=== PATIENT | female | born 1960 | race Caucasian/White ===

== ENCOUNTER → 2016-12-23 | Outpatient (CLI) | payer MEDICARE ==
[~2016-12-23] MED LIST: ASPI-110 PO; ATOR20TA15 PO; BUTA1CAP PO; CLOP75TA PO; ESOM1CAP16 PO; LACTCAP8 PO; LOPE2CAP PO; METO-424 PO; NEUR100C PO; ONDA1TAB17 PO; OXYC-395 PO; PROM25TA10 PO; SOMA350T PO; WALKER WHEELS/F1 MIS
[2016-12-23 12:25] LABS: MEAN CORPUSCULAR HEMOGLOBIN 32.5 PG (27.0-34.0); MEAN CORPUSCULAR HGB CONC 33.5 % (32.0-36.0); PLATELET COUNT 165 TH/MM3 (150-450); RED BLOOD COUNT 4.02 MIL/MM3 (4.00-5.30); RED CELL DISTRIBUTION WIDTH 14.1 % (11.6-17.2); REVIEW FLAG FINAL; WHITE BLOOD COUNT 5.8 TH/MM3 (4.0-11.0)
[2016-12-23 12:35] LABS: INTERNATIONAL NORMALIZED RATIO 0.9 RATIO; PROTHROMBIN TIME - PATIENT 10.4 SEC (9.8-11.6)
[2016-12-23 12:45] LABS: BLOOD, URINE NEG (NEG); COMMENT (UR) CULT NOT INDICATED; CULTURE IF INDICATED CULT NOT INDICATED; GLUCOSE,URINE NEG (NEG); KETONE, URINE NEG (NEG); MUCUS URINE FEW /lpf (OCC); NITRITE,URINE NEG (NEG); PH, URINE 6.5 (5.0-8.5); SQUAMOUS EPITHELIAL CELL URINE <1 /hpf (0-5); URINE COLOR YELLOW (YELLW/STRAW)
[2016-12-23 12:55] LABS: BICARBONATE 28.1 MEQ/L (21.0-32.0); POTASSIUM 4.2 MEQ/L (3.5-5.1)
--- NOTE | 2016-12-23 18:38 | EKG ---
Date Performed: 12/23/2016 Time Performed: 11:31:22 PTAGE: 56 years EKG: SINUS BRADYCARDIA BORDERLINE ECG NO PREVIOUS TRACING DOCTOR: Kashif Silver Interpretating Date/Time 12/23/2016 18:37:51
== END ==
LOC: CPRE 10:36
PROVIDERS: ATTEND Surgery
DX: Z01.812 Encounter for preprocedural laboratory examination (principal); Z01.810 Encounter for preprocedural cardiovascular examination; I73.9 Peripheral vascular disease, unspecified; I77.1 Stricture of artery; R94.31 Abnormal electrocardiogram [ECG] [EKG]
CPT/HCPCS: 36415; 80048; 81001; 85027; 85610; 93005

== ENCOUNTER 2016-12-26 10:12 | Inpatient (IN) | payer MEDICARE ==
[~2016-12-26] VITALS: Ht 156.2 cm; Wt 52.5 kg
[~2016-12-26 10:12] MED LIST changes: -WALKER WHEELS/F1 MIS
[2016-12-26] MEDS ORDERED: LACTATED RINGER'S 1000 ML IV PRN (11:45)
[2016-12-26] MEDS ORDERED: METOPROLOL TARTRATE 25 MG TAB PO PRN (11:45)
[2016-12-26] MEDS ORDERED: POVIDONE IODINE 5% (ANTISEPSIS KIT) 4 APPLICATIONS EACH NARE PRN (11:45)
[2016-12-26] MEDS ORDERED: INSULIN HUMAN REGULAR 1,000 UNITS/10 ML VIAL SQ PRN (11:45)
[2016-12-26] MEDS ORDERED: SODIUM CHLORID 0.9% 500 ML IV PRN (11:45)
[2016-12-26] MEDS ORDERED: CHLORHEXIDINE GLUCONATE 2 % 1 PACK (2 CLOTHS) TOPICAL PRN (11:45)
[2016-12-26] MEDS ORDERED: ROCURONIUM INJ 50 MG/5 ML SYRINGE IV PUSH ONE (12:00)
[2016-12-26] MEDS ORDERED: SODIUM CHLORID 0.9% 500 ML INJ 500 ML IV ONE (12:00)
[2016-12-26] MEDS ORDERED: SODIUM CHLOR 0.9% 250 ML INJ 250 ML IV ONE (12:00)
[2016-12-26] MEDS ORDERED: diphenhydrAMINE HCL 50 MG CAP PO ONE (12:00)
[2016-12-26] MEDS ORDERED: NEOSTIGMINE 3 MG/3 ML SYR IV ONE (12:00)
[2016-12-26] MEDS ORDERED: IOHEXOL 300 MG/ML 50 ML BTL (for RAD DIAG) OTHER ONE (12:00)
[2016-12-26] MEDS ORDERED: predniSONE 50 MG TAB PO ONE (12:00)
[2016-12-26] MEDS ORDERED: PHENYLEPH/NS 1000 MCG/10 ML SYR IV ONE (12:00)
[2016-12-26] MEDS ORDERED: PROPOFOL 200 MG/20 ML AMP IV ONE (12:00)
[2016-12-26] MEDS ORDERED: ONDANSETRON HCL 4 MG/2 ML VIAL IV PUSH ONE (12:00)
[2016-12-26] MEDS ORDERED: GLYCOPYRROLATE 1 MG/5 ML SYRINGE IV PUSH ONE (12:00)
--- NOTE | 2016-12-26 12:14 | HHI.HP ---
History of Present Illness Chief Complaint: LEFT LEG rest pain, PAD History of Present Illness 56 yo female with PAD s/p multiple LE interventions, including ABF, L LE end interventions. Recently known to have failed and presents for L LE revascularization, open or endovascular. No tissue loss. Past/Family/Social History Past Medical History PAD mesenteric occlusive disease CAD Past Surgical History ABF B LE revascularization mesenteric bypass L UE embolectomy Social History former smoker Family History NC Home Medications Reported Medications Promethazine (Phenergan) 25 Mg Tablet, 25 MG PO Q6H Y for NAUSEA OR VOMITING, TAB 0 Refills 12/23/16 Oxycodone (Oxycodone) 10 Mg Tab, 10 MG PO Q6H Y for PAIN, TAB 0 Refills 12/23/16 Ondansetron (Ondansetron) 8 Mg Tab, 8 MG PO TID for Nausea/Vomiting, TAB 0 Refills 12/23/16 Metoprolol Tartrate (Metoprolol Tartrate) 37.5 Mg Tab, 37.5 MG PO BID, #60 TAB 0 Refills 12/23/16 Loperamide (Loperamide) 2 Mg Cap, 2 MG PO DIRECTED Y for DIARRHEA, CAP 0 Refills One capsule after each loose stool. Not to exceed 8 capsules per day. 12/23/16 Lactobacillus Acidophilus (Probiotic) 10 Billion Cell Cap, 1 CAP PO DAILY for Nutritional Supplement, #90 CAP 0 Refills 12/23/16 Gabapentin (Neurontin) 100 Mg Cap, 100 MG PO TID, #90 CAP 0 Refills 12/23/[address] (Esomeprazole DR) 40 Mg Capdr, 40 MG PO DAILY, #30 CAP 0 Refills 12/23/16 Clopidogrel (Clopidogrel) 75 Mg Tab, 75 MG PO DAILY for Blood Clot Prevention, # 30 TAB 0 Refills 12/23/16 Carisoprodol (Soma) 350 Mg Tab, 350 MG PO QID Y for PAIN, TAB 0 Refills 12/23/16 Yzttpoyyal-Ivtjwdmvweswg-Awxdvoqx (Fioricet) 50-300-40 Mg Cap, 1 CAP PO Q4H Y for HEADACHE, CAP 0 Refills 12/23/16 Atorvastatin (Atorvastatin) 20 Mg Tab, 20 MG PO HS for Cholesterol Management, # 30 TAB 0 Refills 12/23/[address] (Aspirin 81) 81 Mg Tabdr, 81 MG PO DAILY, TAB 0 Refills 12/23/16 Coded Allergies: Penicillins (Verified Allergy, Severe, Anaphylaxis, 12/23/16) Sulfa (Sulfonamide Antibiotics) (Verified Allergy, Severe, Anaphylaxis, ) bee venom protein (honey bee) (Verified Allergy, Severe, Anaphylaxis, 12/23) cephalexin (Verified Allergy, Severe, Anaphylaxis, 12/23/16) ciprofloxacin (Verified Allergy, Severe, Anaphylaxis, 12/23/16) iodine (Verified Allergy, Severe, Anaphylaxis, 12/23/16) latex (Verified Allergy, Severe, Anaphylaxis, 12/23/16) levofloxacin (Verified Allergy, Severe, SWELLING, 12/23/16) tetracycline (Verified Allergy, Severe, Anaphylaxis, 12/23/16) heparin (Verified Allergy, Unknown, 12/23/16) morphine (Verified Allergy, Unknown, 12/23/16) Uncoded Allergies: PEPPERS (Allergy, Severe, Anaphylaxis, 12/23/16) Review of Systems Constitutional: DENIES: Diaphoretic episodes, Fatigue, Fever, Weight gain, Weight loss, Chills, Dizziness, Change in appetite, Night Sweats Cardiovascular: DENIES: Chest pain, Palpitations, Syncope, Dyspnea on Exertion , PND, Lower Extremity Edema, Orthopnea, Claudication Physical Exam Neuro: alert, awake, PEREZ HEENT: NC/AT Neck: no JVD Heart: reg rate Lungs: clear B Abdomen: incisions healed Vascular: palpable L femoral pulse, no distal pulses Extremities: no wounds Caprini VTE Risk Assessment Caprini VTE Risk Assessment: Mod/High Risk (score >= 2) Caprini Risk Assessment Model Point Value = 1 Point Value = 2 Point Value = 3 Point Value = 5 Age 41-60 Minor surgery BMI > 25 kg/m2 Swollen legs Varicose veins or History of unexplained or recurrent spontaneous Oral contraceptives or hormone replacement Sepsis (< 1 month) Serious lung disease, including pneumonia (< 1 month) Abnormal pulmonary function Acute myocardial infarction Congestive heart failure (< 1 month) History of inflammatory bowel disease Medical patient at bed rest Age 61-74 Arthroscopic surgery Major open surgery (> 45 min) Laparoscopic surgery (> 45 min) Malignancy Confined to bed (> 72 hours) Immobilizing plaster cast Central venous access Age >= 75 History of VTE Family history of VTE Factor V Leiden Prothrombin [id number] Lupus anticoagulant Anticardiolipin antibodies Elevated serum homocysteine Heparin-induced thrombocytopenia Other congenital or acquired thrombophilia Stroke (< 1 month) Elective arthroplasty Hip, pelvis, or leg fracture Acute spinal cord injury (< 1 month) Prophylaxis Regimen Total Risk Factor Score Risk Level Prophylaxis Regimen 0-1 Low Early ambulation 2 Moderate Order ONE of the following: *Sequential Compression Device (SCD) *Heparin 5000 units SQ BID 3-4 Higher Order ONE of the following medications: *Heparin 5000 units SQ TID *Enoxaparin/Lovenox 40 mg SQ daily (WT < 150 kg, CrCl > 30 mL/min) *Enoxaparin/Lovenox 30 mg SQ daily (WT < 150 kg, CrCl > 10-29 mL/min) *Enoxaparin/Lovenox 30 mg SQ BID (WT < 150 kg, CrCl > 30 mL/min) AND/OR *Sequential Compression Device (SCD) 5 or more Highest Order ONE of the following medications: *Heparin 5000 units SQ TID (Preferred with Epidurals) *Enoxaparin/Lovenox 40 mg SQ daily (WT < 150 kg, CrCl > 30 mL/min) *Enoxaparin/Lovenox 30 mg SQ daily (WT < 150 kg, CrCl > 10-29 mL/min) *Enoxaparin/Lovenox 30 mg SQ BID (WT < 150 kg, CrCl > 30 mL/min) AND *Sequential Compression Device (SCD) Assessment and Plan Plan L LE angiogram and potential intervention or distal bypass Pt and understand the plan Gil Perez MD Dec 26, 2016 12:09
[2016-12-26] MEDS ORDERED: HEPARIN SODIUM - IV 10,000 UNITS/10 ML VIAL ONE (12:55)
[2016-12-26] MEDS ORDERED: BUPIVACAINE HCL PF 0.5% 30 ML VIAL ONE (12:55)
[2016-12-26] MEDS ORDERED: HEPARIN-NS/PF INJ 1,000 ML ONE (12:55)
[2016-12-26] MEDS ORDERED: THROMBIN (TOPICAL) 20,000 UNIT SPRAY KIT ONE (12:56)
[2016-12-26] MEDS ORDERED: PROTAMINE SULFATE 50 MG/5 ML VIAL ONE (12:56)
[2016-12-26] MEDS ORDERED: MIDAZOLAM HCL 2 MG/2 ML VIAL ONE (13:04)
[2016-12-26] MEDS ORDERED: FAMOTIDINE 20 MG/2 ML VIAL ONE (13:05)
[2016-12-26] MEDS ORDERED: methylPREDNISolone SOD SUCC 125 MG/2 ML VIAL ONE (13:05)
[2016-12-26] MEDS ORDERED: diphenhydrAMINE HCL 50 MG/ML VIAL ONE (13:05)
[2016-12-26] MEDS ORDERED: VANCOMYCIN HCL 1000 MG VIAL ONE (13:29)
--- NOTE | 2016-12-26 16:07 | HHI.PR ---
Immediate Post Op Note Procedure Date: Dec 26, 2016 Pre Op Diagnosis: LLE rest pain, PAD Post Op Diagnosis: LLE rest pain, PAD Surgeon: Gil Perez Mds Rn(s): Allegra Fofana Procedure: 1. U/S guided access to fem-fem 2. L LE angiogram 3. L fem-BK pop (cryo) Findings: occluded SFA and popliteal artery Additional Information: Strong Doppler signals DP/PT after bypass Complications: none Specimen(s) removed: none Estimated blood loss: 100mL Anesthesia: General Drains: None Fluids: 1200mL x'oid; 700 mL UOP Patient to: Other ([facility]) Patient Condition: Good Implant/Devices: SEE IMPLANT LOG (if applicable) Date/Time of Procedure: SEE SURGICAL CARE RECORD Gil Perez MD Dec 26, 2016 16:07
[2016-12-26] MEDS: LACTATED RINGER'S 1000 ML INJ 1,000 ML IV SCH (16:08)
[2016-12-26] MEDS ORDERED: NALOXONE HCL 0.4 MG/ML AMP IV PUSH PRN (16:15)
[2016-12-26] MEDS ORDERED: ACETAMIN 325 MG/BUTALBITAL 50 MG/CAFFEINE 40 MG TAB PO PRN (16:15)
[2016-12-26] MEDS ORDERED: LOPERAMIDE HCL 2 MG CAP PO PRN (16:15)
[2016-12-26] MEDS ORDERED: PROMETHAZINE HCL 25 MG TAB PO PRN (16:15)
[2016-12-26] MEDS: HYDROmorphone HCL PCA 6 MG/30 ML IV SCH ×3 (17:01→23:40)
[2016-12-26 17:26] VITALS: PULSE 72
[2016-12-26 18:07] VITALS: PULSE 83
[2016-12-26 19:00] VITALS: BP 167/98; PULSE 102; PULSE 109; RESP 18; TEMP 98.1; O2SAT 96; O2SAT 99
[2016-12-26] MEDS: ONDANSETRON ODT 4 MG TAB PO SCH (20:15)
[2016-12-26] MEDS ORDERED: METOPROLOL TARTRATE 5 MG/5 ML VIAL IV PUSH PRN ×2 (20:45)
[2016-12-26] MEDS: DOCUSATE SODIUM 100 MG CAP PO SCH (21:00)
--- NOTE | 2016-12-26 21:07 | PD.CONS ---
HPI Service Critical Care Medicine Consult Requested By Primary Care Physician Non-Staff History of Present Illness 56-year-old very pleasant female with peripheral arterial disease status post multiple lower extremities interventions, including ABF, left lower extremity stent interventions. Recently known to have failed and presents for left lower extremity revascularization by Dr. Perez. She underwent left lower extremity angiogram with finding of occluded SFA and popliteal artery and was treated with the bypass. Review of Systems Constitutional: DENIES: Diaphoretic episodes, Fatigue, Fever, Weight gain, Weight loss, Chills, Dizziness, Change in appetite, Night Sweats Endocrine: DENIES: Abnorml menstrual pattern, Heat/cold intolerance, Polydipsia , Polyuria, Polyphagia Eyes: DENIES: Blurred vision, Diplopia, Eye inflammation, Eye pain, Vision loss , Photosensitivity, Double Vision Ears, nose, mouth, throat: DENIES: Tinnitus, Hearing loss, Vertigo, Nasal discharge, Oral lesions, Throat pain, Hoarseness, Ear Pain, Running Nose, Epistaxis, Sinus Pain, Toothache, Odynophagia Respiratory: DENIES: Apneas, Cough, Snoring, Wheezing, Hemoptysis, Sputum production, Shortness of breath Cardiovascular: DENIES: Chest pain, Palpitations, Syncope, Dyspnea on Exertion , PND, Lower Extremity Edema, Orthopnea, Claudication Gastrointestinal: DENIES: Abdominal pain, Black stools, Bloody stools, Constipation, Diarrhea, Nausea, Vomiting, Difficulty Swallowing, Anorexia Genitourinary: DENIES: Abnormal vaginal bleeding, Dysmenorrhea, Dyspareunia, Sexual dysfunction, Urinary frequency, Urinary incontinence, Urgency, Hematuria , Dysuria, Nocturia, Vaginal discharge Musculoskeletal: COMPLAINS OF: Muscle aches, DENIES: Joint pain, Stiffness, Joint Swelling, Back pain, Neck pain Integumentary: DENIES: Abnormal pigmentation, Pruritus, Rash, Nail changes, Breast masses, Breast skin changes, Nipple discharge Hematologic/lymphatic: DENIES: Bruising, Lymphadenopathy Immunologic/allergic: DENIES: Eczema, Urticaria Neurologic: COMPLAINS OF: Abnormal gait, Localized weakness, DENIES: Headache, Paresthesias, Seizures, Speech Problems, Tremor, Poor Balance Psychiatric: DENIES: Anxiety, Confusion, Mood changes, Depression, Hallucinations, Agitation, Suicidal Ideation, Homicidal Ideation, Delusions Past Family Social History Allergies: Coded Allergies: Penicillins (Verified Allergy, Severe, Anaphylaxis, 12/23/16) Sulfa (Sulfonamide Antibiotics) (Verified Allergy, Severe, Anaphylaxis, ) bee venom protein (honey bee) (Verified Allergy, Severe, Anaphylaxis, 12/23) cephalexin (Verified Allergy, Severe, Anaphylaxis, 12/23/16) ciprofloxacin (Verified Allergy, Severe, Anaphylaxis, 12/23/16) iodine (Verified Allergy, Severe, Anaphylaxis, 12/23/16) latex (Verified Allergy, Severe, Anaphylaxis, 12/23/16) levofloxacin (Verified Allergy, Severe, SWELLING, 12/23/16) tetracycline (Verified Allergy, Severe, Anaphylaxis, 12/23/16) morphine (Verified Allergy, Unknown, 12/23/16) Uncoded Allergies: PEPPERS (Allergy, Severe, Anaphylaxis, 12/23/16) Past Medical History Peripheral artery disease Mesenteric occlusive disease Coronary artery disease Past Surgical History ABF B LE revascularization mesenteric bypass L UE embolectomy Reported Medications Reported Meds & Active Scripts Active Reported Phenergan (Promethazine HCl) 25 Mg Tablet 25 Mg PO Q6H PRN Oxycodone (Oxycodone HCl) 10 Mg Tab 10 Mg PO Q6H PRN Ondansetron (Ondansetron HCl) 8 Mg Tab 8 Mg PO TID Metoprolol Tartrate 37.5 Mg Tab 37.5 Mg PO BID Loperamide (Loperamide HCl) 2 Mg Cap 2 Mg PO DIRECTED PRN One capsule after each loose stool. Not to exceed 8 capsules per day. 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 LEAD PRESSMAN [employer] GRAV[employer] PRINTING PRN SQ SEE PROTOCOL TABLE 12/26/16 11:45 12/29/16 11:44 Lactated Ringer's 1,000 ml @ 42 mls/hr [id number] IV 12/26/16 16:08 12/26/16 16:08 Famotidine (Pepcid) 20 mg BID PO 12/26/16 21:00 12/26/16 21:35 Docusate Sodium (Colace) 100 mg BID PO 12/26/16 21:00 Enoxaparin Sodium (Lovenox Inj) 30 mg Q24H SQ 12/27/16 16:00 Aspirin (Ecotrin Ec) 81 mg DAILY PO 12/27/16 09:00 Atorvastatin Calcium (Lipitor) 20 mg HS PO 12/26/16 21:00 12/26/16 21:34 Carisoprodol (Soma) 350 mg QID PRN PO PAIN 12/26/16 16:15 Clopidogrel Bisulfate (Plavix) 75 mg DAILY PO 12/27/16 09:00 Loperamide HCl (Imodium) 2 mg Q12H PRN PO DIARRHEA 12/26/16 16:15 Promethazine HCl (Phenergan) 25 mg Q6H PRN PO NAUSEA OR VOMITING 12/26/16 16:15 Acetaminophen/ Butalbital/ Caffeine (Fioricet 325-50-40) 1 tab Q4H PRN PO HEADACHE 12/26/16 16:15 Pantoprazole Sodium (Protonix) 40 mg DAILY PO 12/27/16 09:00 Metoprolol Tartrate (Lopressor) 37.5 mg BID PO 12/26/16 21:00 12/26/16 21:35 Ondansetron HCl (Zofran Odt) 8 mg TID PO 12/26/16 18:00 12/26/16 20:15 Metoprolol Tartrate (Lopressor Inj) 10 mg Q2H PRN IV PUSH FOR SBP>160 12/26/16 20:45 Metoprolol Tartrate (Lopressor Inj) 10 mg Q2H PRN IV PUSH IF FIRST DOSE INEFFECTIVE 12/26/16 20:45 WIRE STRAIGHTENER Dosage Infused (Pha) 1 Q8HR .XX 12/27/16 06:00 Naloxone HCl (Narcan Inj) 0.4 mg UNSCH PRN IV PUSH RESPIRATORY RATE LESS THAN 10 12/27/16 00:00 Diphenhydramine HCl (Benadryl) 25 mg Q6H PRN PO ITCHING 12/27/16 00:00 Diphenhydramine HCl (Benadryl Inj) 25 mg Q6H PRN IV PUSH ITCHING 12/27/16 00:00 Hydromorphone HCl (Dilaudid WIRE STRAIGHTENER Inj) 6 mg UNSCH IV 12/26/16 23:45 12/26/16 23:40 Family History No family history significant for malignancy Social History Former smoker No history of alcohol abuse, no history of illicit drug abuse Physical Exam Vital Signs Vital Signs Date Time Temp Pulse Resp B/P (MAP) Pulse Ox O2 Delivery O2 Flow Rate FiO2 12/26/16 20:46 18 12/26/16 20:15 18 12/26/16 19:00 102 12/26/16 18:07 83 12/26/16 17:26 72 12/26/16 17:01 18 12/26/16 12:22 97.6 56 20 130/64 (86) 99 Physical Exam GENERAL: Well-nourished, well-developed patient. In no acute distress SKIN: Warm and dry. HEAD: Normocephalic. EYES: No scleral icterus. No injection or drainage. NECK: Supple, trachea midline. No JVD or lymphadenopathy. CARDIOVASCULAR: Regular rate and rhythm without murmurs, gallops, or rubs. RESPIRATORY: Breath sounds equal bilaterally. No accessory muscle use. GASTROINTESTINAL: Abdomen soft, non-tender, nondistended. MUSCULOSKELETAL: No cyanosis, or edema. BACK: Nontender without obvious deformity. NEURO EXAM: GCS: M6 V5 E4 Mental Status: The patient is alert and oriented to person, place, and time with normal speech. Cranial Nerves: Visual acuity intact bilaterally. Visual morocho normal in all quadrants. Pupils are round, reactive to light. Extraocular movements are intact without ptosis. Hearing is normal bilaterally. Voice is normal. Tongue protrudes midline and moves symmetrically. Laboratory Reported Meds & Active Scripts Active Reported Phenergan (Promethazine HCl) 25 Mg Tablet 25 Mg PO Q6H PRN Oxycodone (Oxycodone HCl) 10 Mg Tab 10 Mg PO Q6H PRN Ondansetron (Ondansetron HCl) 8 Mg Tab 8 Mg PO TID Metoprolol Tartrate 37.5 Mg Tab 37.5 Mg PO BID Loperamide (Loperamide HCl) 2 Mg Cap 2 Mg PO DIRECTED PRN One capsule after each loose stool. Not to exceed 8 capsules per day. Esomeprazole DR 40 Mg Capdr 40 Mg PO DAILY Clopidogrel (Clopidogrel Bisulfate) 75 Mg Tab 75 Mg PO DAILY Soma (Carisoprodol) 350 Mg Tab 350 Mg PO QID PRN Fioricet (Dwdrduwvff-Jsyojcxmkptiy-Msnbhufn) 50-300-40 Mg Cap 1 Cap PO Q4H PRN Atorvastatin (Atorvastatin Calcium) 20 Mg Tab 20 Mg PO HS Aspirin 81 (Aspirin) 81 Mg Tabdr 81 Mg PO DAILY Assessment and Plan Assessment and Plan Peripheral vascular disease - Status post bypass surgery and revascularization of left lower extremity - Further management per vascular surgeon Hypertension - Metoprolol Dyslipidemia - Atorvastatin Coronary artery disease - Aspirin - Plavix - Metoprolol - Atorvastatin Headaches - Fioricet when necessary Hypoglycemia - Insulin sliding scale Diarrhea - Loperamide when necessary DVT GI prophylaxis - Lovenox - Pepcid Critical Care: The total critical care time was 35 minutes. Time to perform other separately billable procedures was not included in the critical care time. Chriss Quintanilla MD Dec 26, 2016 9:07 pm
[2016-12-26] MEDS: ATORVASTATIN 20 MG TAB PO SCH (21:34)
[2016-12-26] MEDS: FAMOTIDINE 20 MG TAB PO SCH (21:35)
[2016-12-26] MEDS: METOPROLOL TARTRATE 25 MG TAB PO SCH (21:35)
[2016-12-26] MEDS ORDERED: PCA - TOTAL MG DILAUDID DELIVERED PER SHIFT OTHER SCH (22:00)
[2016-12-26 23:00] VITALS: BP 117/49; PULSE 74; PULSE 78; RESP 18; TEMP 98.1; O2SAT 96; O2SAT 99
[2016-12-27] VITALS (16 sets, daily range): BP systolic 84–128; BP diastolic 43–65; PULSE 57–74; RESP 16–20; TEMP 97.3–98.4; O2SAT 90–100
[2016-12-27] MEDS ORDERED: NALOXONE HCL 0.4 MG/ML AMP IV PUSH PRN
[2016-12-27] MEDS: diphenhydrAMINE HCL 50 MG/ML VIAL IV PUSH PRN ×3 (05:15→23:48)
[2016-12-27] MEDS: HYDROmorphone HCL PCA 6 MG/30 ML IV SCH ×7 (05:45→23:22)
[2016-12-27] MEDS: PCA - TOTAL MG DILAUDID DELIVERED PER SHIFT SCH ×3 (05:58→22:00)
[2016-12-27 06:44] LABS: HEMATOCRIT 31.6 % (35.0-46.0); MEAN CELL VOLUME 96.7 FL (80.0-100.0); MEAN CORPUSCULAR HEMOGLOBIN 33.2 PG (27.0-34.0); MEAN CORPUSCULAR HGB CONC 34.4 % (32.0-36.0); PLATELET COUNT 144 TH/MM3 (150-450); RED BLOOD COUNT 3.27 MIL/MM3 (4.00-5.30); RED CELL DISTRIBUTION WIDTH 14.2 % (11.6-17.2); REVIEW FLAG FINAL; WHITE BLOOD COUNT 6.3 TH/MM3 (4.0-11.0)
[2016-12-27 06:47] LABS: POTASSIUM 3.9 MEQ/L (3.5-5.1)
[2016-12-27] MEDS: LACTATED RINGER'S 1000 ML INJ 1,000 ML IV SCH (08:17)
[2016-12-27] MEDS: ASPIRIN EC 81 MG TABEC PO SCH (08:29)
[2016-12-27] MEDS: FAMOTIDINE 20 MG TAB PO SCH ×2 (08:30→21:05)
[2016-12-27] MEDS: DOCUSATE SODIUM 100 MG CAP PO SCH ×2 (08:30→21:00)
[2016-12-27] MEDS: METOPROLOL TARTRATE 25 MG TAB PO SCH ×2 (08:30→21:00)
[2016-12-27] MEDS: CLOPIDOGREL 75 MG TAB PO SCH (08:30)
[2016-12-27] MEDS: PANTOPRAZOLE SOD 40 MG DELAYED RELEASE TAB PO SCH (08:30)
[2016-12-27] MEDS: ONDANSETRON ODT 4 MG TAB PO SCH ×3 (08:51→18:16)
--- NOTE | 2016-12-27 09:45 | PD.VS.PN ---
Subjective POD #: 1 Procedure(s): L LE angiogram L fem-BK pop (cryo) Subjective/Hospital Course Afebrile 56/W/F S/P LLE bypass Patient in bed c/o Left upper thigh discomfort last night Pain controlled currently Pt w/o any other complaints L LE incision intact L groin Provena wound vac intact w/o hematoma Objective Vitals/I&O Date Time Temp Pulse Resp B/P (MAP) Pulse Ox O2 Delivery O2 Flow Rate FiO2 12/27/16 07:55 94 Nasal Cannula 2.00 12/27/16 07:31 98.1 57 20 116/62 (80) 90 12/27/16 07:30 90 Room Air 12/27/16 07:29 57 12/27/16 06:54 18 12/27/16 06:17 16 12/27/16 05:58 17 12/27/16 05:45 16 12/27/16 03:00 96 Room Air 12/27/16 03:00 57 12/27/16 03:00 98.3 57 18 128/65 (86) 96 12/26/16 23:40 17 12/26/16 23:00 78 12/26/16 23:00 98.1 74 18 117/49 (71) 99 12/26/16 23:00 96 Nasal Cannula 2.00 12/26/16 20:46 18 12/26/16 20:15 18 12/26/16 19:00 96 Nasal Cannula 3.00 12/26/16 19:00 98.1 109 18 167/98 (121) 99 12/26/16 19:00 102 12/26/16 18:07 83 12/26/16 17:26 72 12/26/16 17:01 18 12/26/16 12:22 97.6 56 20 130/64 (86) 99 12/27/16 12/27/16 12/27/16 07:00 15:00 23:00 Intake Total 1340 ml 800 ml Output Total 475 ml Balance 865 ml 800 ml Exam: GENERAL: Afebrile 56/W/F alert in NAD/GCS 15 SKIN: Warm and dry Left L LE incision intact with surgical glue/mild ecchoymois present w/o R/D/S Provena wound vac intact to Left groin w/o hematoma or discomfort CARDIOVASCULAR: Sinus misbah HR 59 on CM RESPIRATORY: No accessory muscle use. GASTROINTESTINAL: S/NT MUSCULOSKELETAL: No cyanosis, or edema BLE warm w/ motor intact L DP/PT w/ strong palpable pulses Laboratory Laboratory Tests Test 12/27/16 06:11 White Blood Count 6.3 Red Blood Count 3.27 Hemoglobin 10.9 Hematocrit 31.6 Mean Corpuscular Volume 96.7 Mean Corpuscular Hemoglobin 33.2 Mean Corpuscular Hemoglobin Concent 34.4 Red Cell Distribution Width 14.2 Platelet Count 144 Mean Platelet Volume 10.9 Blood Urea Nitrogen 3 Creatinine 0.44 Random Glucose 80 Calcium Level 7.8 Sodium Level 137 Potassium Level 3.9 Chloride Level 104 Carbon Dioxide Level 28.0 Anion Gap 5 Estimat Glomerular Filtration Rate 149 Assessment and Plan Assessment: (1) Chronic back pain Status: Chronic (2) PAD (peripheral artery disease) Status: Chronic (3) History of arterial bypass of lower extremity Status: Acute Plan POD 1 s/p L LE angiogram/ L LE distal bypass PT c/o L LE discomfort last night No other complaints reported Plan OK to transfer to PSYCHIATRIC Removed Escobar cath Continue to control Pain PT/OOB Cathleen DOWNS [facility] [phone] Discharge Planning 2-3 days Cathleen Hair Dec 27, 2016 09:45
--- NOTE | 2016-12-27 11:51 | HHI.CCPN ---
Subjective Remarks/Hospital Course 56-year-old very pleasant female with peripheral arterial disease status post multiple lower extremities interventions, including ABF, left lower extremity stent interventions. Recently known to have failed and presents for left lower extremity revascularization by Dr. Perez. She underwent left lower extremity angiogram with finding of occluded SFA and popliteal artery and was treated with the bypass. Subjective: 12/27: Tmax 98.3. No acute events overnight. Hemodynamically stable. Patient complains of pain visual analog scale 8/10 however patient is a chronic pain patient normally takes 30 mg every 6 hours at home for chronic neck and back pain for the last 4-5 years, per her report. Pain scale at home levels 5-6 normally. Patient currently on TEST AND RESEARCH REACTOR OPERATOR continuous at 0.3 mg/hour, will eventually transition to PO narcotics. Patient tolerated PO diet. Objective Vital Signs Date Time Temp Pulse Resp B/P (MAP) Pulse Ox O2 Delivery O2 Flow Rate FiO2 12/27/16 11:08 98.0 61 20 84/43 (57) 95 12/27/16 11:06 Nasal Cannula 2.00 Intake and Output 12/27/16 12/27/16 12/28/16 08:00 16:00 00:00 Intake Total 1310 ml 830 ml Output Total 475 ml Balance 835 ml 830 ml Result Diagram: 12/27/16 0611 12/27/16 0611 Objective Remarks GENERAL: Well-nourished, well-developed patient. In no acute distress , sitting up in bed SKIN: Warm and dry. HEAD: Normocephalic. EYES: No scleral icterus. No injection or drainage. NECK: Supple, trachea midline. No JVD or lymphadenopathy. CARDIOVASCULAR: Regular rate and rhythm without murmurs, gallops, or rubs. RESPIRATORY: Breath sounds equal bilaterally. No accessory muscle use. GASTROINTESTINAL: Abdomen soft, non-tender, nondistended. MUSCULOSKELETAL: No cyanosis, or edema. BACK: Nontender without obvious deformity. NEURO EXAM: GCS: M6 V5 E4 Mental Status: The patient is alert and oriented to person, place, and time with normal speech. Cranial Nerves: Visual acuity intact bilaterally. Visual morocho normal in all quadrants. Pupils are round, reactive to light. Extraocular movements are intact without ptosis. Hearing is normal bilaterally. Voice is normal. Tongue protrudes midline and moves symmetrically. A/P Assessment and Plan Peripheral vascular disease - S/P bypass surgery and revascularization of left lower extremity POD #1 - Further management per vascular surgeon Hypertension - Metoprolol Dyslipidemia - Atorvastatin Coronary artery disease - Aspirin - Plavix - Metoprolol - Atorvastatin Headaches - Fioricet when necessary Chronic pain syndrome -Patient currently on TEST AND RESEARCH REACTOR OPERATOR 0.3mg Dilaudid continuous, with demand dosing 0.3mg q 6 hrs -Plan for patient to resume home medications today. Patient's pain management physician in [place], for her continued pre-existing pain management care Hypoglycemia - Insulin sliding scale Diarrhea - Loperamide when necessary DVT GI prophylaxis - Lovenox - Pepcid Dispo: Level 3 Discussed with patient and SUPERVISOR [employer]UCATION at bedside. Thank you for allowing participation in care of this patient critical care medicine will sign off now. Physician Sabrina Rios MD Dec 27, 2016 11:51
[2016-12-27] MEDS: CARISOPRODOL 350 MG TAB PO PRN ×2 (11:54→21:00)
[2016-12-27] MEDS: ENOXAPARIN SODIUM 30 MG/0.3 ML SYRINGE SQ SCH (15:05)
[2016-12-27] MEDS: ATORVASTATIN 20 MG TAB PO SCH (21:00)
[2016-12-27] MEDS ORDERED: HYDROmorphone HCL PCA 6 MG/30 ML IV SCH (23:15)
--- NOTE | 2016-12-27 23:29 | MP ---
cc: KEN PEREZ MD DATE OF SURGERY 12/26/16 PREOPERATIVE DIAGNOSIS Left lower extremity rest pain, peripheral arterial occlusive disease. POSTOPERATIVE DIAGNOSIS Left lower extremity rest pain, peripheral arterial occlusive disease. PROCEDURE 1. Ultrasound guided access to fem-fem. 2. Left lower extremity angiogram. 3. Left femoral below-knee popliteal artery bypass with cryopreserved vein. ATTENDING PHYSICIAN Ken Perez MD ANESTHESIA General. INDICATIONS Ms. Cuadra is a 56-year-old lady with left lower extremity rest pain and TIGRE of 0.5. She has failed endovascular intervention. She is taken to the operating room for a bypass. Preoperatively she needed an angiogram to determine her distal target. There is no prior catheter-based imaging available for my review. DETAILS OF PROCEDURE Informed consent was obtained from the patient. She was taken to the operating room and placed supine on the operating room table. An appropriate time-out was taken to ensure the patient's identity, operative site and planned procedure. The administration of 1 gram of vancomycin was initiated prior to skin incision, will be discontinued after a single preoperative dose. Everyone in the room agreed to timeout and we proceeded. Of note, vancomycin was chosen due to the patient's multiple allergies. She was prepped from her nipples to her toes. Under ultrasound guided access a 21 gauge micropuncture needle was used to access the right side of the fem-fem bypass. This was exchanged using Seldinger technique, micropuncture sheath through which an angiogram was obtained. A 0.035 Glidewire was introduced. Micropuncture sheath was exchanged for 4-[place] sheath and multiple attempts were made to recanalize her SFA but these were unsuccessful. The wire and catheter were removed and the sheath was flushed. It was used an arterial line throughout the case. An incision was made in the patient's groin, carried down to subcutaneous tissue with electrocautery. The inflow site of the fem-fem bypass was identified and dissected free and circled with a vessel loop. Incision was made on the proximal medial calf, carried down to the subcutaneous tissue with electrocautery. Below-knee popliteal artery was identified and circled with vessel loop. Tunnels then created between these two. The patient systemically heparinized and throughout the remainder of the case the ACT was kept greater than 250. Proximal and distal control of the fem-fem bypass were obtained with profunda clamps and a longitudinal graftotomy was made with an 11 blade, extended with Vivek scissors. The cryopreserved vein had been brought up onto the field, was spatulated and sewn end-to-side with running 5-0 Prolene suture. At the completion the clamps were released. There was a nice pulse in both ends of the fem-fem bypass and the graft distended well. The graft was then marked for inpatient, clipped to the distal end and passed through the tunnel. Proximal, distal control below knee popliteal artery was obtained with profunda clamps and a longitudinal arteriotomy was made with an 11 blade, extended with [place] scissors. The graft was cut to an appropriate length, spatulated and sewn end-to-side with running 6-0 [place] Prolene suture. At the completion the clamps were released. There was a nice pulse in the distal below-knee popliteal artery and strong Doppler signals that were graft dependent in the dorsalis pedis and posterior tibial locations. The wounds were irrigated, made hemostatic. The heparin was reversed with protamine and the wounds were closed with 2-0 Polysorb, 3-0 Polysorb and 4-0 Monocryl. The sheath was removed from the fem-fem and manual pressure held for hemostasis. There were no complications. I was present and scrubbed and performed the entire procedure. MD CHU Da Silva/NATY /5:23 PM /11:09 PM MUKESH
[2016-12-28] VITALS (27 sets, daily range): BP systolic 105–139; BP diastolic 52–99; PULSE 59–84; RESP 14–18; TEMP 98–99; O2SAT 93–99
[2016-12-28] MEDS: CARISOPRODOL 350 MG TAB PO PRN ×3 (04:57→21:09)
[2016-12-28] MEDS: PCA - TOTAL MG DILAUDID DELIVERED PER SHIFT SCH ×3 (06:00→22:00)
[2016-12-28] MEDS: LACTATED RINGER'S 1000 ML INJ 1,000 ML IV SCH (08:01)
[2016-12-28] MEDS: CLOPIDOGREL 75 MG TAB PO SCH (09:23)
[2016-12-28] MEDS: ASPIRIN EC 81 MG TABEC PO SCH (09:24)
[2016-12-28] MEDS: ONDANSETRON ODT 4 MG TAB PO SCH ×3 (09:27→17:03)
[2016-12-28] MEDS: HYDROmorphone HCL PCA 6 MG/30 ML IV SCH ×4 (09:27→20:19)
[2016-12-28] MEDS: FAMOTIDINE 20 MG TAB PO SCH ×2 (09:27→20:19)
[2016-12-28] MEDS: DOCUSATE SODIUM 100 MG CAP PO SCH ×2 (09:27→20:19)
[2016-12-28] MEDS: PANTOPRAZOLE SOD 40 MG DELAYED RELEASE TAB PO SCH (09:27)
[2016-12-28] MEDS: METOPROLOL TARTRATE 25 MG TAB PO SCH ×2 (09:27→20:20)
[2016-12-28] MEDS ORDERED: PNEUMOCOCCAL POLYVALENT INJ 25 MCG/0.5 ML SYR IM ONE (10:00)
[2016-12-28] MEDS ORDERED: INFLUENZA VIRUS VACCINE (QUADRIVALENT) 0.5 ML SYR IM ONE (10:00)
--- NOTE | 2016-12-28 10:07 | PD.VS.PN ---
Subjective POD #: 2 Procedure(s): L LE angiogram L fem-BK pop (cryo) Subjective/Hospital Course Afebrile 56/W/F S/P LLE bypass Pain controlled Pt w/o any other complaints L LE incision intact L groin Provena wound vac intact w/o hematoma Objective Vitals/I&O Date Time Temp Pulse Resp B/P (MAP) Pulse Ox O2 Delivery O2 Flow Rate FiO2 12/28/16 09:27 16 12/28/16 08:31 99.0 69 14 124/94 (104) 93 12/28/16 07:29 67 12/28/16 06:00 68 12/28/16 06:00 16 12/28/16 06:00 12 12/28/16 05:00 66 12/28/16 05:00 16 12/28/16 04:00 78 12/28/16 03:00 98.1 70 16 139/99 (112) 95 12/28/16 03:00 97 Room Air 12/28/16 03:00 64 12/28/16 02:00 62 12/28/16 01:00 60 12/28/16 00:26 16 12/28/16 00:00 64 12/27/16 23:22 16 12/27/16 23:00 97 Room Air 12/27/16 23:00 60 12/27/16 23:00 98.4 63 16 106/60 (75) 97 12/27/16 22:00 16 12/27/16 22:00 66 12/27/16 21:00 70 12/27/16 20:00 97.3 64 16 120/55 (76) 100 12/27/16 20:00 74 12/27/16 19:39 16 12/27/16 19:30 100 Room Air 12/27/16 19:00 66 12/27/16 18:00 64 12/27/16 17:00 66 12/27/16 16:00 62 12/27/16 15:57 20 12/27/16 15:46 96 Room Air 12/27/16 15:20 98.0 64 20 111/56 (74) 96 12/27/16 15:00 64 12/27/16 14:00 20 12/27/16 12:51 17 12/27/16 11:08 98.0 61 20 84/43 (57) 95 9/19/17 11:07 61 12/27/16 11:06 95 Nasal Cannula 2.00 12/28/16 12/28/16 12/28/16 07:00 15:00 23:00 Intake Total 960 ml 1000 ml Output Total 700 ml Balance 260 ml 1000 ml Exam: GENERAL: Afebrile 56/W/F alert in NAD/GCS 15 SKIN: Warm and dry Left L LE incision intact with surgical glue/mild ecchoymois present w/o R/D/S Provena wound vac intact to Left groin w/o hematoma or discomfort CARDIOVASCULAR: RRR, +S1, S2 RESPIRATORY: No accessory muscle use. GASTROINTESTINAL: S/NT MUSCULOSKELETAL: No cyanosis, or edema BLE warm w/ motor intact L DP/PT w/ strong palpable pulses R DP/PT palpable Assessment and Plan Assessment: (1) Chronic back pain Status: Chronic (2) PAD (peripheral artery disease) Status: Chronic (3) History of arterial bypass of lower extremity Status: Acute Plan POD 2 s/p L LE angiogram/ L LE distal bypass Pt doing well Plan Continue to control Pain PT/OOB Cathleen DOWNS [facility]/[place] [phone] Discharge Planning 2-3 days Cathleen Hair Dec 28, 2016 10:07
[2016-12-28] MEDS: diphenhydrAMINE HCL 50 MG/ML VIAL IV PUSH PRN ×3 (10:26→23:57)
[2016-12-28] MEDS: diphenhydrAMINE HCL 25 MG CAP PO PRN ×2 (11:26→21:08)
[2016-12-28] MEDS: ENOXAPARIN SODIUM 30 MG/0.3 ML SYRINGE SQ SCH (17:09)
[2016-12-28] MEDS: ATORVASTATIN 20 MG TAB PO SCH (20:19)
[2016-12-29] VITALS (29 sets, daily range): BP systolic 101–145; BP diastolic 57–82; PULSE 56–78; RESP 14–16; TEMP 97.7–99.4; O2SAT 94–97
[2016-12-29] MEDS: CARISOPRODOL 350 MG TAB PO PRN ×3 (03:19→20:22)
[2016-12-29] MEDS: diphenhydrAMINE HCL 25 MG CAP PO PRN (03:19)
[2016-12-29] MEDS: ONDANSETRON ODT 4 MG TAB PO SCH ×3 (03:20→18:08)
[2016-12-29] MEDS: diphenhydrAMINE HCL 50 MG/ML VIAL IV PUSH PRN (05:36)
[2016-12-29] MEDS: PCA - TOTAL MG DILAUDID DELIVERED PER SHIFT SCH ×3 (06:00→22:00)
[2016-12-29] MEDS: HYDROmorphone HCL PCA 6 MG/30 ML IV SCH ×2 (06:20)
[2016-12-29] MEDS: PANTOPRAZOLE SOD 40 MG DELAYED RELEASE TAB PO SCH (08:24)
[2016-12-29] MEDS: DOCUSATE SODIUM 100 MG CAP PO SCH ×2 (08:24→20:22)
[2016-12-29] MEDS: FAMOTIDINE 20 MG TAB PO SCH ×2 (08:24→20:23)
[2016-12-29] MEDS: CLOPIDOGREL 75 MG TAB PO SCH (08:24)
[2016-12-29] MEDS: ASPIRIN EC 81 MG TABEC PO SCH (08:24)
[2016-12-29] MEDS: METOPROLOL TARTRATE 25 MG TAB PO SCH ×2 (08:25→20:23)
--- NOTE | 2016-12-29 11:06 | PD.VS.PN ---
Subjective POD #: 3 Procedure(s): L LE angiogram L fem-BK pop (cryo) Subjective/Hospital Course Afebrile 56/W/F S/P LLE bypass Pain controlled Pt w/o any other complaints L LE incision intact L groin Provena wound vac intact w/o hematoma Objective Vitals/I&O Date Time Temp Pulse Resp B/P (MAP) Pulse Ox O2 Delivery O2 Flow Rate FiO2 12/29/16 07:51 98.6 69 16 125/65 (85) 95 12/29/16 07:30 95 Room Air 12/29/16 06:20 16 12/29/16 06:00 68 12/29/16 06:00 16 12/29/16 05:00 70 12/29/16 04:00 68 12/29/16 03:00 70 12/29/16 03:00 94 Room Air 12/29/16 03:00 99.4 69 16 117/57 (77) 94 12/29/16 02:00 66 12/29/16 01:17 16 12/29/16 01:00 66 12/29/16 00:30 16 12/29/16 00:00 64 12/29/16 00:00 16 12/28/16 23:00 98.3 66 16 119/52 (74) 94 12/28/16 23:00 95 Room Air 12/28/16 23:00 64 12/28/16 22:35 16 12/28/16 22:00 66 12/28/16 22:00 16 12/28/16 21:00 68 12/28/16 20:19 16 12/28/16 20:00 74 12/28/16 19:00 95 Room Air 12/28/16 19:00 72 12/28/16 19:00 98.3 69 16 105/52 (69) 93 12/28/16 18:09 63 12/28/16 17:32 65 12/28/16 17:11 14 12/28/16 15:20 98.8 67 18 111/53 (72) 95 12/28/16 15:00 65 12/28/16 15:00 Room Air 12/28/16 14:40 63 12/28/16 14:00 16 12/28/16 13:07 59 12/28/16 12:18 98.0 61 14 123/57 (79) 94 12/28/16 12:16 64 12/28/16 12:11 94 Room Air 12/28/16 12:08 62 12/28/16 12:00 16 12/28/16 11:45 98.0 64 18 123/57 (79) 99 12/29/16 12/29/16 12/29/16 07:00 15:00 23:00 Intake Total 1060 ml 84 ml Output Total 1200 ml Balance -140 ml 84 ml Exam: GENERAL: Afebrile 56/W/F alert in NAD/GCS 15 SKIN: Warm and dry Left L LE incision intact with surgical glue/mild ecchoymois present w/o R/D/S Provena wound vac intact to Left groin w/o hematoma or discomfort CARDIOVASCULAR: RRR, +S1, S2 RESPIRATORY: No accessory muscle use. GASTROINTESTINAL: S/NT MUSCULOSKELETAL: No cyanosis, or edema BLE warm w/ motor intact L DP/PT w/ strong palpable pulses R DP/PT palpable Assessment and Plan Assessment: (1) Chronic back pain Status: Chronic (2) PAD (peripheral artery disease) Status: Chronic (3) History of arterial bypass of lower extremity Status: Acute Plan POD 3 s/p L LE angiogram/ L LE distal bypass Pt doing well Pt requesting Oxycodone 30 mg for pain control- Called pt's PCP Dr. 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
[2016-12-29] MEDS: ENOXAPARIN SODIUM 30 MG/0.3 ML SYRINGE SQ SCH (15:54)
[2016-12-29] MEDS: ATORVASTATIN 20 MG TAB PO SCH (20:23)
[2016-12-30] VITALS (12 sets, daily range): BP systolic 110–116; BP diastolic 56–68; PULSE 57–68; RESP 16; TEMP 98.1–98.3; O2SAT 95
[2016-12-30] MEDS: CARISOPRODOL 350 MG TAB PO PRN (04:27)
[2016-12-30] MEDS: ONDANSETRON ODT 4 MG TAB PO SCH (04:48)
[2016-12-30] MEDS: PCA - TOTAL MG DILAUDID DELIVERED PER SHIFT SCH (06:00)
[2016-12-30] MEDS: ASPIRIN EC 81 MG TABEC PO SCH (09:05)
[2016-12-30] MEDS: FAMOTIDINE 20 MG TAB PO SCH (09:05)
[2016-12-30] MEDS: METOPROLOL TARTRATE 25 MG TAB PO SCH (09:05)
[2016-12-30] MEDS: CLOPIDOGREL 75 MG TAB PO SCH (09:05)
[2016-12-30] MEDS: PANTOPRAZOLE SOD 40 MG DELAYED RELEASE TAB PO SCH (09:05)
[2016-12-30] MEDS: DOCUSATE SODIUM 100 MG CAP PO SCH (09:05)
--- NOTE | 2016-12-30 09:10 | PD.VS.PN ---
Subjective POD #: 4 Procedure(s): L LE angiogram L fem-BK pop (cryo) Subjective/Hospital Course Afebrile 56/W/F S/P LLE bypass Pain controlled Pt w/o any other complaints L LE incision intact L groin incision intact w/o hematoma Objective Vitals/I&O Date Time Temp Pulse Resp B/P (MAP) Pulse Ox O2 Delivery O2 Flow Rate FiO2 12/30/16 07:32 95 Room Air 12/30/16 07:32 98.1 57 16 116/56 (76) 95 12/30/16 06:00 66 12/30/16 05:38 14 12/30/16 05:00 66 12/30/16 04:00 58 12/30/16 03:00 97 Room Air 12/30/16 03:00 98.3 63 16 110/68 (82) 95 12/30/16 03:00 68 12/30/16 02:00 60 12/30/16 01:00 64 12/30/16 00:00 58 12/29/16 23:30 58 14 144/68 (93) 97 12/29/16 23:00 56 12/29/16 23:00 95 Room Air 12/29/16 22:00 56 12/29/16 21:00 64 12/29/16 20:00 66 12/29/16 19:30 97.7 62 16 101/65 (77) 95 12/29/16 19:00 78 12/29/16 19:00 95 Room Air 12/29/16 18:00 67 12/29/16 17:00 76 12/29/16 16:00 74 12/29/16 15:48 94 Room Air 12/29/16 15:45 98.6 66 16 145/82 (103) 97 12/29/16 15:00 60 12/29/16 14:00 62 12/29/16 13:00 60 12/29/16 12:00 72 12/29/16 11:05 97 Room Air 12/29/16 11:05 98.3 62 16 116/59 (78) 97 12/29/16 11:00 61 12/29/16 10:00 62 12/30/16 12/30/16 12/30/16 07:00 15:00 23:00 Intake Total 950 ml Output Total 600 ml Balance 350 ml Exam: Warm and dry Left L LE incision intact with surgical glue/mild ecchoymois present w/o R/D/S Left groin w/o hematoma or discomfort,incision intact CARDIOVASCULAR: RRR, +S1, S2 RESPIRATORY: No accessory muscle use. GASTROINTESTINAL: S/NT MUSCULOSKELETAL: No cyanosis, or edema BLE warm w/ motor intact L DP/PT w/ strong palpable pulses R DP/PT palpable Assessment and Plan Assessment: (1) Chronic back pain Status: Chronic (2) PAD (peripheral artery disease) Status: Chronic (3) History of arterial bypass of lower extremity Status: Acute Plan POD 4 s/p L LE angiogram/ L LE distal bypass Pt doing well Pt requesting Oxycodone 30 mg for pain control- Called pt's PCP Dr. Blanton to confirm dose- dose confirmed Plan D/C today Arranged post op follow up Cathleen DOWNS [facility]/[employer] [phone] Discharge Planning Cathleen Gregg Dec 30, 2016 09:10
--- NOTE | 2016-12-30 09:23 | PD.VS.DC ---
Discharge Summary Admission Date: Dec 26, 2016 at 11:00 Discharge Date: Dec 30, 2016 Admission Diagnosis: (1) Chronic back pain (2) PAD (peripheral artery disease) (3) History of arterial bypass of lower extremity Discharge Diagnosis: (1) Chronic back pain ICD Codes: M54.9 - Dorsalgia, unspecified; G89.29 - Other chronic pain Status: Chronic (2) PAD (peripheral artery disease) ICD Codes: I73.9 - Peripheral vascular disease, unspecified Status: Chronic (3) History of arterial bypass of lower extremity ICD Codes: Z95.828 - Presence of other vascular implants and grafts Status: Acute Brief History from admission 56 yo female with PAD s/p multiple LE interventions, including ABF, L LE end interventions. Recently known to have failed and presents for L LE revascularization, open or endovascular. No tissue loss. Procedure(s): L LE angiogram L fem-BK pop (cryo) Significant Findings Warm and dry Left L LE incision intact with surgical glue/mild ecchoymois present w/o R/D/S Left groin w/o hematoma or discomfort /incision intact CARDIOVASCULAR: RRR, +S1, S2 RESPIRATORY: No accessory muscle use. GASTROINTESTINAL: S/NT MUSCULOSKELETAL: No cyanosis, or edema BLE warm w/ motor intact L DP/PT w/ strong palpable pulses R DP/PT palpable Hospital Course: 56 yo female with PAD s/p multiple LE interventions, including ABF, L LE end interventions. Recently known to have failed and presents for L LE revascularization, open or endovascular. No tissue loss. pt s/p LLE bypass (L fem-BK pop) w/o complications Pt with sufficient L LE perfusion as patient now has a palpable L PT/DP Allergies Coded Allergies Type Severity Reaction Last Updated Verified Penicillins Allergy Severe Anaphylaxis 12/23/16 Yes Sulfa (Sulfonamide Antibiotics) Allergy Severe Anaphylaxis 12/23/16 Yes bee venom protein (honey bee) Allergy Severe Anaphylaxis 12/23/16 Yes cephalexin Allergy Severe Anaphylaxis 12/23/16 Yes ciprofloxacin Allergy Severe Anaphylaxis 12/23/16 Yes iodine Allergy Severe Anaphylaxis 12/23/16 Yes latex Allergy Severe Anaphylaxis 12/23/16 Yes levofloxacin Allergy Severe SWELLING 12/23/16 Yes tetracycline Allergy Severe Anaphylaxis 12/23/16 Yes morphine Allergy Unknown 12/23/16 Yes Uncoded Allergies Type Severity Reaction Last Updated Verified PEPPERS Allergy Severe Anaphylaxis 12/23/16 12/28/16 12/28/16 12/29/16 12/29/16 12/30/16 12/30/16 06:00 18:00 06:00 18:00 06:00 18:00 Intake Total 960 ml 2244 ml 60 ml 1834 ml 950 ml Output Total 700 ml 975 ml 1800 ml 600 ml Balance 260 ml 1269 ml 60 ml 34 ml 350 ml Intake Oral 960 ml 680 ml 1200 ml 950 ml IV Total 1564 ml 60 ml 634 ml Output Urine Total 700 ml 975 ml 1800 ml 600 ml # Voids 1 3 # Bowel Movements 0 Orders Procedure Category Date Status Time Oxycodone (Roxicodone) MED 12/27/16 Complete 10:00 Diaper, Adult Small SPD 12/27/16 Logged Attend Ea 10:57 Resp Incentive RSP 12/27/16 Complete Spirometry Resp Request For RSP 12/27/16 Complete Service Vascular Access Team CONSTANTINO 12/28/16 In Process Consult/P 10:48 Vascular Poc IMGUS 12/28/16 Taken Ultrasound Oxycodone (Roxicodone) MED 12/29/16 In Process 16:00 ^ Other Nursing Orders CONSTANTINO 12/29/16 In Process 14:30 Attending Discharge DISCHARGE 12/30/16 Transmitted Order Vital Signs Date Time Temp Pulse Resp B/P (MAP) Pulse Ox O2 Delivery O2 Flow Rate FiO2 12/30/16 07:32 95 Room Air 12/30/16 07:32 98.1 57 16 116/56 (76) 95 12/30/16 06:00 66 12/30/16 05:38 14 12/30/16 05:00 66 12/30/16 04:00 58 12/30/16 03:00 97 Room Air 12/30/16 03:00 98.3 63 16 110/68 (82) 95 12/30/16 03:00 68 12/30/16 02:00 60 12/30/16 01:00 64 12/30/16 00:00 58 12/29/16 23:30 58 14 144/68 (93) 97 12/29/16 23:00 56 12/29/16 23:00 95 Room Air 12/29/16 22:00 56 12/29/16 21:00 64 12/29/16 20:00 66 12/29/16 19:30 97.7 62 16 101/65 (77) 95 12/29/16 19:00 78 12/29/16 19:00 95 Room Air 12/29/16 18:00 67 12/29/16 17:00 76 12/29/16 16:00 74 12/29/16 15:48 94 Room Air 12/29/16 15:45 98.6 66 16 145/82 (103) 97 12/29/16 15:00 60 12/29/16 14:00 62 12/29/16 13:00 60 12/29/16 12:00 72 12/29/16 11:05 97 Room Air 12/29/16 11:05 98.3 62 16 116/59 (78) 97 12/29/16 11:00 61 12/29/16 10:00 62 12/29/16 09:00 68 12/29/16 08:00 74 12/29/16 07:51 98.6 69 16 125/65 (85) 95 12/29/16 07:30 95 Room Air 12/29/16 07:00 70 12/29/16 06:20 16 12/29/16 06:00 68 12/29/16 06:00 16 12/29/16 05:00 70 12/29/16 04:00 68 12/29/16 03:00 70 12/29/16 03:00 94 Room Air 12/29/16 03:00 99.4 69 16 117/57 (77) 94 12/29/16 02:00 66 12/29/16 01:17 16 12/29/16 01:00 66 12/29/16 00:30 16 12/29/16 00:00 64 12/29/16 00:00 16 12/28/16 23:00 98.3 66 16 119/52 (74) 94 12/28/16 23:00 95 Room Air 12/28/16 23:00 64 12/28/16 22:00 66 12/28/16 22:00 16 12/28/16 21:00 68 12/28/16 20:19 16 12/28/16 20:00 74 12/28/16 19:00 95 Room Air 12/28/16 19:00 72 12/28/16 19:00 98.3 69 16 105/52 (69) 93 12/28/16 18:09 63 12/28/16 17:32 65 12/28/16 17:11 14 12/28/16 15:20 98.8 67 18 111/53 (72) 95 12/28/16 15:00 65 12/28/16 15:00 Room Air 12/28/16 14:40 63 12/28/16 14:00 16 12/28/16 13:07 59 12/28/16 12:18 98.0 61 14 123/57 (79) 94 12/28/16 12:16 64 12/28/16 12:11 94 Room Air 12/28/16 12:08 62 12/28/16 12:00 16 12/28/16 11:45 98.0 64 18 123/57 (79) 99 12/28/16 10:08 93 Room Air 12/28/16 10:00 84 12/28/16 09:27 16 12/28/16 09:00 66 12/28/16 08:31 99.0 69 14 124/94 (104) 93 12/28/16 08:00 68 12/28/16 07:29 67 12/28/16 06:00 68 12/28/16 06:00 16 12/28/16 05:00 66 12/28/16 04:00 78 12/28/16 03:00 98.1 70 16 139/99 (112) 95 12/28/16 03:00 97 Room Air 12/28/16 03:00 64 12/28/16 02:00 62 12/28/16 01:00 60 12/28/16 00:00 64 12/27/16 23:22 16 12/27/16 23:00 97 Room Air 12/27/16 23:00 60 12/27/16 23:00 98.4 63 16 106/60 (75) 97 12/27/16 22:00 16 12/27/16 22:00 66 12/27/16 21:00 70 12/27/16 20:00 97.3 64 16 120/55 (76) 100 9/19/17 20:00 74 12/27/16 19:39 16 12/27/16 19:30 100 Room Air 12/27/16 19:00 66 12/27/16 18:00 64 12/27/16 17:00 66 12/27/16 16:00 62 12/27/16 15:57 20 12/27/16 15:46 96 Room Air 12/27/16 15:20 98.0 64 20 111/56 (74) 96 12/27/16 15:00 64 12/27/16 14:00 20 12/27/16 12:51 17 12/27/16 11:08 98.0 61 20 84/43 (57) 95 12/27/16 11:07 61 12/27/16 11:06 95 Nasal Cannula 2.00 12/27/16 09:58 20 Discharge Condition: Good Discharge Disposition: Discharge Home Discharge Instructions: F/U in 2W with an TIGRE in our out patient clinic May shower then pat dry incisions No tub baths until incisions are fully healed Do not apply creams or ointments to incisions as it may loosen the surgical glue Activities as tolerated Call the office with any questions or concerns Cathleen DOWNS [facility]/[place] [phone] Any questions or concerns: Call [facility] at [facility] [phone] Cathleen Hair Dec 30, 2016 09:23
[2016-12-30] MEDS ORDERED: WALKER WHEELS/F1 MIS (09:25)
== END 2016-12-30 10:32 | disposition home or self-care (01) | DRG 254 ==
LOC: HSDI 11:00 → EDUNIT# 12:30 → HCVR 18:31 → HCIN 12-27 12:27
PROVIDERS: ADMIT Surgery; ATTEND Surgery
PROC: B41G1ZZ Fluoroscopy of Left Lower Extremity Arteries using Low Osmolar Contrast (ICD-10-PCS; 2016-12-26)
PROC: 041L09L Bypass Left Femoral Artery to Popliteal Artery with Autologous Venous Tissue, Open Approach (ICD-10-PCS; principal; 2016-12-26 13:17)
DX: I70.422 Atherosclerosis of autologous vein bypass graft(s) of the extremities with rest pain, left leg (principal); I10 Essential (primary) hypertension; E16.2 Hypoglycemia, unspecified; I25.10 Atherosclerotic heart disease of native coronary artery without angina pectoris; E78.5 Hyperlipidemia, unspecified; G89.4 Chronic pain syndrome; M54.2 Cervicalgia; R19.7 Diarrhea, unspecified; Z87.891 Personal history of nicotine dependence; Z23 Encounter for immunization; Z95.820 Peripheral vascular angioplasty status with implants and grafts; R94.31 Abnormal electrocardiogram [ECG] [EKG]
CPT/HCPCS: 36415; 75710; 76937; 80048; 81001; 85027; 85610; 86850; 86900; 86901; 86920; 90471; 90472; 90686; 90732; 93005; 94150; G0008; G0009; J1170; J1200; J1644; J1650; J2250; J2370; J2405; J2710; J2720; J2930; J3010; J3370; J7040; J7050; J7120; Q0169; Q2038; Q9967